=== PATIENT | male | born 1965 | race Caucasian/White ===

== ENCOUNTER 2021-09-19 09:52 | Outpatient (RCR) | payer BC, SELFPAY ==
--- NOTE | 2021-09-19 11:02 | PTOPEVAL ---
Thank you for referring Gregor Valverde to [facility].? The patient is scheduled to be seen for therapy? ____x/week for ___ weeks. Please review, sign, date and return this plan of care KRISSY. I agree with and certify that the following plan of care is medically necessary. Referring Physician Date Admitting Provider: Attending Provider: Art Koenig, PIPER Referring Provider: *PT Outpatient Evaluation Start: 09/19/21 10:03 Freq: Status: Active Protocol: Document 09/19/21 10:04 Alexander (Rec: 09/19/21 11:01 [email or web address]) Therapy Assessment Status Assessment Status Assessment Status Evaluation Evaluation Information Problem Diagnosis R shoulder pain Onset 09/18/21 Additional Evaluation Detail quick dash = 40% functionally declined Subjective Information patient reports he has been Query Text:As Reported By Patient/ having pain in the R shoulder Family off and on for several years. he reports he was in therapy about 2 years ago for the R shoulder but has been feeling well until recently. he reports this past weekend his R shoulder began hurting with severe pain. he reports he does have bone spurs, arthritis, and a torn muscle. he reports this was imaged in 2014 to find this. he reports he has increased pain with lifting his shoulder above his head, reaching out to grab or lift objects, pain into the elbow, and pain in the outside of the shoulder. Prior Level of Function Comments Additional Prior Level of Function prior to Saturday, patient was Comments he was doing well since he last had therapy back on october of 2019. patient reports he works at [employer]. Pain Assessment Timing of Pain Assessment Timing of Pain Assessment Assessment Pain Scale Pain Scale Used Numeric (1 - 10) Self Report Pain Assessment Right Shoulder(s) Reported Pain Level 0 Greatest Pain Intensity 7 Pain Score Pain Score 0: Self Report Interventions Used Interventions Used By Clinicians Heat,Rest Upper Extremity Range of Motion General Upper Extremity Range of Motion Gross Upper Extremity Range of Motion L shoulder arom flex = 155 Comments
== END 2021-09-21 08:42 | disposition home or self-care (01) ==
LOC: CHSPT 09:52
PROVIDERS: PCP Physician Assistant; Visit Provider Physician Assistant
DX: M25.511 Pain in right shoulder (principal)
CPT/HCPCS: 97014; 97110; 97140; 97161; G0283

== ENCOUNTER 2023-01-21 10:43 | Outpatient (RCR) | payer BC, SELFPAY ==
--- NOTE | 2023-01-21 12:13 | OTOPEVAL1 ---
Assessment and note entered by Migdalia Roa OT Evaluation Information Assessment Status Evaluation Diagnosis Carpal Tunnel Syndrome Onset 12/19/2022 Subjective Information The patient reports that he is planning to go back to work on 02/04/23 as long as both wrists are healing well and he is released. The patient reports no pain at rest with some discomfort at the incision sight at times. The patient reports after having stitches removed in R wrist that he broke them open at the bottom and has been taking it easy on his L wrist. The patient reports that he does not have many difficulties at this time and would like to participate in therapy for a few weeks and then try to perform exercises at home. The patient was educated on the progression of his diagnosis and educated on UE HEP to perform at this time with good understanding and return demonstration. Reported Pain Level Pain Score 0: Self Report Assessment OT Clinical Summary The patient is a 57 year old male who was referred to outpatient OT due to B carpal tunnel surgery. The patient's PMH includes but is not limited to bronchitis, diabetes, and surgery on R knee. 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 The patient requires skilled OT to address current deficits and return to PLOF following B carpal tunnel surgery. Plan of Care Interventions Therapeutic Exercise,Manual Therapy,Therapeutic Activities,Hot Pack/Cold Pack,Electrical Stimulation,Self-Care/Home Management,Ultrasound OT Services Indicated Yes Treatment Frequency and 2x/week for 10 visits. Duration These treatments will address the objective and functional deficits as defined above. The patient will be advanced safely and appropriately in order for the patient to progress towards his/her prior level of function. Additional exercises will be introduced and as well as a comprehensive home exercise program upon dischar
== END 2023-04-21 23:59 | disposition home or self-care (01) ==
LOC: CHSOT 10:43
PROVIDERS: Visit Provider Orthopaedic Surgery
DX: G56.02 Carpal tunnel syndrome, left upper limb (principal)
CPT/HCPCS: 97110; 97140; 97165

== ENCOUNTER 2025-09-24 15:57 | Outpatient (CLI) | payer OTHER, BC, SELFPAY ==
--- NOTE | ~2025-09-24 | XR_ITS ---
XR lumbar spine 2-3V 09/24/2025 16:16 Indication: Low back pain. Intermittent numbness of the lower extremities. No known injury. Procedure: 3 views lumbar spine Comparison: No prior studies for comparison. Findings: There are mild wedge compression fractures of L1 and L2, likely chronic. There is disc narrowing at L3-4 and L4-5. There is facet hypertrophy at L3-4, L4-5 and L5-S1. There is prominent endplate degenerative change at L1-2 through L3-4. Pedicles intact. Sacral foramen are symmetric. Impression: 1: Mild wedge compression fractures of L1 and L2, likely chronic. 2: Severe lumbar spondylosis. Reviewed, dictated and finalized at location [facility] Impression: 1: Mild wedge compression fractures of L1 and L2, likely chronic. 2: Severe lumbar spondylosis.
== END 2025-09-24 15:58 | disposition home or self-care (01) ==
PROVIDERS: PCP Physician Assistant; Visit Provider Physician Assistant
DX: M54.50 Low back pain, unspecified (principal); M48.56XA Collapsed vertebra, not elsewhere classified, lumbar region, initial encounter for fracture; M43.06 Spondylolysis, lumbar region
CPT/HCPCS: 72100